=== PATIENT | female | born 1955 ===

== ENCOUNTER 2024-06-01 18:53 | Emergency (ER) | payer OTHER ==
[~2024-06-01] VITALS: Ht 162.6 cm; Wt 81.8 kg
[2024-06-01 19:02] VITALS: BP 153/93; PULSE 68; RESP 16; TEMP 98.9; O2SAT 97
== END 2024-06-01 21:45 | disposition left against medical advice (07) ==
LOC: EMS 18:53
DX: M54.9 Dorsalgia, unspecified (principal); Z53.21 Procedure and treatment not carried out due to patient leaving prior to being seen by health care provider